=== PATIENT | female | born 1985 | race Two or more races ===

== ENCOUNTER 2023-08-21 13:34 | Outpatient (CLI) | payer OTHER ==
[~2023-08-21 13:34] MED LIST: IRON18 MG PO; PRENATAL TABLE1 EAC1 PO; Procardia Xl 30MG TA PO
== END 2023-08-21 14:32 | disposition home or self-care (01) ==
LOC: NST 13:34
PROVIDERS: ATTEND Obstetrics & Gynecology Gynecology
DX: Z34.83 Encounter for supervision of other normal pregnancy, third trimester (principal)

== ENCOUNTER 2023-08-31 13:04 | Outpatient (CLI) | payer OTHER | END 2023-08-31 13:49 | disposition home or self-care (01) | LOC: NST 13:04 | PROVIDERS: ATTEND Obstetrics & Gynecology Maternal & Fetal Medicine | DX: Z34.83 Encounter for supervision of other normal pregnancy, third trimester (principal) ==

== ENCOUNTER 2023-09-07 11:44 | Outpatient (CLI) | payer OTHER | END 2023-09-07 12:54 | disposition home or self-care (01) | LOC: NST 11:44 | PROVIDERS: ATTEND Obstetrics & Gynecology Maternal & Fetal Medicine | DX: Z34.83 Encounter for supervision of other normal pregnancy, third trimester (principal) ==

== ENCOUNTER 2023-09-10 14:48 | Outpatient (CLI) | payer OTHER | END 2023-09-10 18:12 | disposition home or self-care (01) | LOC: NST 14:48 | PROVIDERS: ATTEND Obstetrics & Gynecology Maternal & Fetal Medicine | DX: Z34.83 Encounter for supervision of other normal pregnancy, third trimester (principal) ==

== ENCOUNTER 2023-09-11 10:37 | Inpatient (IN) | payer OTHER ==
[~2023-09-11] VITALS: Ht 167.6 cm; Wt 1.8 kg
[2023-09-11] MEDS ORDERED: RINGERS SOLUTION,LACTATED 1,000 ML IV SCH (14:00)
[2023-09-11 15:11] LABS: HEMATOCRIT 35.4 % (36.0-45.00); HEMOGLOBIN 12.1 g/dL (12.0-15.00); INR < 0.93; MEAN CELL VOLUME 89.8 fL (80.00-100.00); MEAN CORPUSCULAR HEMOGLOBIN 30.7 pg (27.00-32.0); MEAN CORPUSCULAR HGB CONC 34.2 g/dl (32.0-36.0); PLATELET COUNT 240 K/uL (150-450); PROTHROMBIN TIME 9.7 SECONDS (9.0-11.5); RED BLOOD COUNT 3.94 M/uL (4.00-6.00); RED CELL DISTRIBUTION WIDTH 12.2 % (11.5-14.5)
[2023-09-11 15:16] LABS: ALBUMIN 2.7 gm/dL (3.4-5.0); BILIRUBIN TOTAL 0.22 mg/dL (0.3-1.2); CALCIUM 9.3 mg/dL (8.5-10.1); CREATININE SERUM 0.4 mg/dL (0.55-1.02); GFR 181.64; GLOBULINA 4.6 G/DL (2.4-3.5); POTASSIUM 4.44 mEq/L (3.5-5.1); TOTAL PROTEIN 7.3 gm/dL (6.4-8.2)
[2023-09-11] MEDS ORDERED: OXYTOCIN 20 UNITS/500ML RL PIGGYBAG IV ONE (15:42)
[2023-09-11] MEDS ORDERED: OXYTOCIN 20 UNITS/500ML RL PIGGYBAG IV SCH (16:00)
[2023-09-11] MEDS ORDERED: TERBUTALINE SULFATE 1 MG/ML AMPUL ONE (16:10)
[2023-09-11] MEDS ORDERED: CITRIC ACID/SODIUM CITRATE 30 ML BLIST.PACK PO ONE (16:20)
[2023-09-11] MEDS ORDERED: CEFOXITIN SODIUM 2,000 MG VIAL IV ONE (16:20)
[2023-09-11] MEDS ORDERED: ERYTHROMYCIN BASE 1 GM TUBE OP ONE (16:28)
[2023-09-11] MEDS ORDERED: OXYTOCIN 10 UNITS/ML VIAL ONE ×2 (16:28→19:08)
[2023-09-11] MEDS ORDERED: CITRIC ACID/SODIUM CITRATE 30 ML BLIST.PACK PO STA (16:39)
[2023-09-11] MEDS ORDERED: CEFOXITIN SODIUM 2,000 MG VIAL IV STA (16:39)
[2023-09-11] MEDS ORDERED: TERBUTALINE SULFATE 1 MG/ML AMPUL SUBCUTANEO STA (16:41)
[2023-09-11 18:50] LABS: ABG pCO2 48.2 mmHg (35-45)
[2023-09-11 18:51] LABS: ABG PO2 17.7 mmHg (80-100); BASE EXCESS -2.9 mmol/l; BICARBONATE 23.7 mmol/l (23-25); SaO2 20.8 %; Tco2 25.2 mmol/l; o2 21 %
[2023-09-11] MEDS ORDERED: MORPHINE SULFATE 4 MG/ML CARTRIDGE IV PRN (19:00)
[2023-09-11] MEDS ORDERED: KETOROLAC TROMETHAMINE 30 MG VIAL IV NR (19:00)
[2023-09-11] MEDS ORDERED: KETOROLAC TROMETHAMINE 30 MG VIAL ONE (19:21)
[2023-09-11] MEDS ORDERED: SIMETHICONE 125 MG CAPSULE PO SCH (21:00)
[2023-09-12] MEDS ORDERED: KETOROLAC TROMETHAMINE 10 MG TABLET PO SCH
[2023-09-12] MEDS ORDERED: CEFAZOLIN SODIUM 1,000 MG VIAL IV SCH (01:00)
[2023-09-12 02:07] LABS: HEMATOCRIT 30.8 % (36.0-45.00); HEMOGLOBIN 10.5 g/dL (12.0-15.00); MEAN CELL VOLUME 89.5 fL (80.00-100.00); MEAN CORPUSCULAR HEMOGLOBIN 30.4 pg (27.00-32.0); MEAN CORPUSCULAR HGB CONC 33.9 g/dl (32.0-36.0); PLATELET COUNT 186 K/uL (150-450); RED BLOOD COUNT 3.45 M/uL (4.00-6.00); RED CELL DISTRIBUTION WIDTH 12.1 % (11.5-14.5)
[2023-09-12 08:04] LABS: HEMOGLOBIN 10.8 g/dL (12.0-15.00); MEAN CELL VOLUME 88.6 fL (80.00-100.00); MEAN CORPUSCULAR HGB CONC 33.9 g/dl (32.0-36.0); PLATELET COUNT 188 K/uL (150-450); RED BLOOD COUNT 3.62 M/uL (4.00-6.00); RED CELL DISTRIBUTION WIDTH 12.5 % (11.5-14.5)
[2023-09-12] MEDS ORDERED: OxyCODONE HCL/APAP UD (PERCOCET) PO SCH (13:00)
[2023-09-12] MEDS ORDERED: OXYTOCIN 20 UNITS in RINGERS SOLUTION,LACTATED 1,000 ML IV SCH (18:00)
[2023-09-14] MEDS ORDERED: OXYC1TAB9 PO (07:52)
[2023-09-14] MEDS ORDERED: KETO10TA2 PO (07:52)
== END 2023-09-14 13:54 | disposition home or self-care (01) | DRG 786 ==
LOC: NST 10:37 → LDR 13:25 → O/R 16:59 → OB/GYN 17:48
PROVIDERS: ADMIT Obstetrics & Gynecology Maternal & Fetal Medicine; ATTEND Obstetrics & Gynecology Maternal & Fetal Medicine
PROC: 4A1HXCZ Monitoring of Products of Conception, Cardiac Rate, External Approach (ICD-10-PCS; 2023-09-11)
PROC: 10D00Z1 Extraction of Products of Conception, Low, Open Approach (ICD-10-PCS; principal; 2023-09-11 16:30)
DX: O36.5930 Maternal care for other known or suspected poor fetal growth, third trimester, not applicable or unspecified (principal); O60.14X0 Preterm labor third trimester with preterm delivery third trimester, not applicable or unspecified; Z3A.36 36 weeks gestation of pregnancy; Z37.0 Single live birth; Z20.822 Contact with and (suspected) exposure to COVID-19

== ENCOUNTER 2025-02-10 10:35 | Day surgery (SDC) | payer OTHER ==
[2025-02-07 16:13] LABS: BASO % 1.0 % (0.1-1.2); EOS # 0.11 (0.04-0.54); EOS % 1.2 % (0.7-7.0); LYMPH # 2.74 (1.18-3.74); LYMPH % 29.5 % (19.3-53.1); MEAN PLATELET VOLUME 11.40 fl (9.4-12.4); MONO # 0.60 (0.24-0.82); MONO % 6.5 % (4.7-12.5); NEUT # 5.74 (1.56-6.13); NEUT % 61.6 % (34.0-71.1); RED CELL DISTRIBUTION WIDTH 12.5 % (11.6-14.4)
[2025-02-07 16:43] LABS: INR 1.04
[~2025-02-10 10:35] MED LIST changes: +CHLORHEXIDINE GLUCONATE 120 ML BOTTLE TOP ONE; +KETO10TA2 PO; +OXYC1TAB9 PO; +POVIDONE-IODINE 118 ML BOTT TOP ONE
[2025-02-10] MEDS ORDERED: CEFOXITIN SODIUM 2,000 MG VIAL IV ONE (11:50)
[2025-02-10] MEDS ORDERED: CHLORHEXIDINE GLUCONATE 120 ML BOTTLE TOP ONE (12:42)
[2025-02-10] MEDS ORDERED: POVIDONE-IODINE 118 ML BOTT TOP ONE (12:42)
== END 2025-02-10 20:00 | disposition home or self-care (01) ==
LOC: CIR.AMB 10:35
PROVIDERS: ATTEND Obstetrics & Gynecology Maternal & Fetal Medicine
DX: O02.1 Missed abortion (principal)